=== PATIENT | female | born 1995 | race Caucasian/White ===

== ENCOUNTER 2022-08-04 04:06 | Day surgery (SDC) | payer OTHER ==
[~2022-08-04] VITALS: Ht 149.9 cm; Wt 61.0 kg
[2022-08-04] VITALS (252 sets, daily range): BP systolic 71–139; BP diastolic 33–96
[2022-08-04 08:56] LABS: BASO% 0.2 % (0-3); EOS% 1.5 % (0-8); HEMATOCRIT 38.8 % (37.0-47.0); HEMOGLOBIN 13.2 g/dl (12.0-16.0); IMMATURE GRANULOCYTES 0.2 % (0.0-5.0); LYMPH% 36.3 % (15-41); MEAN CELL VOLUME 88.6 fL CALC (80.0-100.0); MEAN CORPUSCULAR HGB 30.1 pG CALC (26.0-32.0); MONO% 6.6 % (2-13); NEUT# 4.51 thou/uL (2.00-7.15); NEUT% 55.2 % (42-76); RED BLOOD COUNT 4.38 mill/uL (4.20-5.60); RED CELL DISTRI WIDTH 12.1 % (11.5-15.5)
[2022-08-04 09:09] LABS: ALBUMIN 4.7 g/dL (3.2-5.0); ALKALINE PHOSPHATASE 89 u/l (38-126); ANION GAP 14 (6-22 (CALC)); BILIRUBIN, TOTAL 0.4 mg/dL (0.02-1.3); BUN 13 mg/dL (7-17); BUN/CREATININE RATIO 17 (12-20 (CALC)); CARBON DIOXIDE 27 mmol/l (22-30); CHLORIDE 102 mmol/l (95-108); CREATININE 0.8 mg/dL (0.5-1.0); GFR FOR AFR.AMER. > 60 ML/MIN (>=60 (CALC)); GFR OTHER RACES > 60 ML/MIN (>=60 (CALC)); POTASSIUM 3.5 mmol/l (3.5-5.1); SGOT/AST 29 u/l (14-36); SODIUM 139 mmol/l (137-146)
[2022-08-04] MEDS ORDERED: CLONIDINE0.1 MG PO (15:07)
[2022-08-04] MEDS ORDERED: NALTREXONE50 MG PO (15:07)
[2022-08-04] MEDS ORDERED: KLONOPIN2 MG PO (15:08)
[2022-08-05 00:15] VITALS: BP 102/64
[2022-08-05 03:51] VITALS: BP 102/61
[2022-08-05 04:00] VITALS: BP 102/61
[2022-08-05 06:02] LABS: HEMATOCRIT 37.8 % (37.0-47.0); HEMOGLOBIN 13.2 g/dl (12.0-16.0); IMMATURE GRANULOCYTES 0.2 % (0.0-5.0); LYMPH% 8.1 % (15-41); MEAN CELL VOLUME 87.7 fL CALC (80.0-100.0); MEAN CORPUSCULAR HGB 30.6 pG CALC (26.0-32.0); MEAN CORPUSCULAR HGB CONC 34.9 g/dL CAL (32.0-36.0); MONO% 2.5 % (2-13); NEUT# 15.12 thou/uL (2.00-7.15); NEUT% 89.2 % (42-76); RED BLOOD COUNT 4.31 mill/uL (4.20-5.60)
[2022-08-05 06:30] LABS: ALBUMIN 4.1 g/dL (3.2-5.0); ALKALINE PHOSPHATASE 86 u/l (38-126); ANION GAP 12 (6-22 (CALC)); BILIRUBIN, TOTAL 0.5 mg/dL (0.02-1.3); BUN 5 mg/dL (7-17); BUN/CREATININE RATIO 8 (12-20 (CALC)); CARBON DIOXIDE 26 mmol/l (22-30); CHLORIDE 103 mmol/l (95-108); CREATININE 0.6 mg/dL (0.5-1.0); GFR FOR AFR.AMER. > 60 ML/MIN (>=60 (CALC)); GFR OTHER RACES > 60 ML/MIN (>=60 (CALC)); MAGNESIUM 2.5 mg/dL (1.6-2.3); POTASSIUM 3.7 mmol/l (3.5-5.1); SGOT/AST 29 u/l (14-36); SODIUM 137 mmol/l (137-146); TOTAL PROTEIN 7.1 g/dL (6.3-8.2)
[2022-08-05 07:15] VITALS: BP 100/54
[2022-08-05 08:00] VITALS: BP 102/61
[2022-08-05 12:00] VITALS: BP 102/61
== END 2022-08-05 17:00 | disposition home or self-care (01) | DRG 897 ==
LOC: MS2 04:06 → ANR 04:06 → MS2 04:09 → ANR 08:00 → MS2 18:30 → ANR 08-05 17:00
PROVIDERS: ATTEND Anesthesiology Critical Care Medicine
DX: F11.20 Opioid dependence, uncomplicated (principal)
CPT/HCPCS: J2354; J3475

== ENCOUNTER 2022-08-07 18:46 | Day surgery (SDC) | payer OTHER ==
[~2022-08-07] VITALS: Ht 149.9 cm; Wt 49.9 kg
[~2022-08-07 18:46] MED LIST: CLONIDINE0.1 MG PO; KLONOPIN2 MG PO; NALTREXONE50 MG PO
[2022-08-07 19:27] LABS: BASO% 0.1 % (0-3); EOS% 0.1 % (0-8); HEMATOCRIT 38.5 % (37.0-47.0); IMMATURE GRANULOCYTES 0.8 % (0.0-5.0); LYMPH% 18.3 % (15-41); MEAN CELL VOLUME 88.9 fL CALC (80.0-100.0); MEAN CORPUSCULAR HGB CONC 33.8 g/dL CAL (32.0-36.0); MONO% 5.6 % (2-13); NEUT# 11.77 thou/uL (2.00-7.15); NEUT% 75.1 % (42-76); RED BLOOD COUNT 4.33 mill/uL (4.20-5.60); RED CELL DISTRI WIDTH 12.2 % (11.5-15.5)
[2022-08-07 19:38] LABS: ALBUMIN 4.5 g/dL (3.2-5.0); ALKALINE PHOSPHATASE 64 u/l (38-126); ANION GAP 17 (6-22 (CALC)); BILIRUBIN, TOTAL 0.8 mg/dL (0.02-1.3); BUN 13 mg/dL (7-17); BUN/CREATININE RATIO 21 (12-20 (CALC)); CARBON DIOXIDE 21 mmol/l (22-30); CHLORIDE 110 mmol/l (95-108); CREATININE 0.6 mg/dL (0.5-1.0); GFR FOR AFR.AMER. > 60 ML/MIN (>=60 (CALC)); GFR OTHER RACES > 60 ML/MIN (>=60 (CALC)); POTASSIUM 3.8 mmol/l (3.5-5.1); SGOT/AST 24 u/l (14-36); SODIUM 144 mmol/l (137-146); TOTAL PROTEIN 7.3 g/dL (6.3-8.2)
[2022-08-07 19:54] VITALS: BP 114/76
[2022-08-07 22:48] VITALS: BP 152/87
== END 2022-08-07 22:48 | disposition home or self-care (01) | DRG 641 ==
LOC: MSOP 18:46 → MS2 18:46 → MSOP 22:48
PROVIDERS: ATTEND Anesthesiology Critical Care Medicine
DX: E86.0 Dehydration (principal)

== ENCOUNTER 2022-08-08 18:28 | Observation (INO) | payer OTHER ==
[~2022-08-08] VITALS: Ht 149.9 cm; Wt 50.0 kg
[2022-08-08 18:55] VITALS: BP 129/75
[2022-08-08 20:54] LABS: ALBUMIN 4.4 g/dL (3.2-5.0); ALKALINE PHOSPHATASE 61 u/l (38-126); ANION GAP 17 (6-22 (CALC)); BILIRUBIN, TOTAL 0.8 mg/dL (0.02-1.3); BUN 10 mg/dL (7-17); BUN/CREATININE RATIO 16 (12-20 (CALC)); CARBON DIOXIDE 20 mmol/l (22-30); CHLORIDE 106 mmol/l (95-108); CREATININE 0.6 mg/dL (0.5-1.0); GFR FOR AFR.AMER. > 60 ML/MIN (>=60 (CALC)); GFR OTHER RACES > 60 ML/MIN (>=60 (CALC)); MAGNESIUM 2.1 mg/dL (1.6-2.3); POTASSIUM 3.4 mmol/l (3.5-5.1); SGOT/AST 27 u/l (14-36); SODIUM 139 mmol/l (137-146); TOTAL PROTEIN 7.5 g/dL (6.3-8.2)
[2022-08-08 21:24] LABS: TSH, 3RD GENERATION 0.23 uIU/mL (0.47 - 4.68)
[2022-08-09 02:49] VITALS: BP 112/62
[2022-08-09 04:11] VITALS: BP 102/52
[2022-08-09 07:01] VITALS: BP 106/59
[2022-08-09 08:00] VITALS: BP 106/59
[2022-08-09 08:12] VITALS: BP 106/59
== END 2022-08-09 09:58 | disposition home or self-care (01) | DRG 392 ==
LOC: MS2 18:28
PROVIDERS: ADMIT Anesthesiology Critical Care Medicine; ATTEND Anesthesiology Critical Care Medicine
DX: R11.2 Nausea with vomiting, unspecified (principal); F11.20 Opioid dependence, uncomplicated
CPT/HCPCS: J0131